=== PATIENT | male | born 1945 | race Caucasian/White ===

== ENCOUNTER 2019-10-28 07:34 | Emergency (ER) | payer MEDICARE ==
[2019-10-28 07:42] VITALS: RESP 18; TEMP 98.2
--- NOTE | 2019-10-28 08:17 | ED ---
General Adult HPI - General Chief complaint: Neuro Symptoms/Deficit Stated complaint: right arm numbness Time Seen by Provider: 10/28/19 07:35 Source: patient, RN notes reviewed, old records reviewed Mode of arrival: wheelchair Limitations: no limitations - History of Present Illness Initial comments: This is a 74-year-old male who presents to the emergency department stating that he woke up yesterday with right arm heaviness but no actual numbness or weakness. Patient states occasionally feels tingly like when it's about to go to sleep but never loses sensation. Patient states also when he raises his arm up he gets a sharp pain in his arm and a little more that tingling sensation like it's going to sleep but again never loses function or sensation. Patient denies any neck pain. Patient denies any increase in heaviness or weakness with movement of the neck per patient denies headache. Patient denies chest pain difficulty breathing shortest breath per patient denies any back pain. Patient denies any abdominal pain patient denies any recent fever chills or cough. - Related Data Home Medications Medication Instructions Recorded Confirmed No Known Home Medications 02/21/15 02/21/15 Allergies Allergy/AdvReac Type Severity Reaction Status Date / Time No Known Allergies Allergy Verified 10/28/19 07:38 Review of Systems ROS Statement: Those systems with pertinent positive or pertinent negative responses have been documented in the HPI. ROS Other: All systems not noted in ROS Statement are negative. Past Medical History Past Medical History: Prostate Disorder History of Any Multi-Drug Resistant Organisms: None Reported Past Surgical History: Prostate Surgery Past Psychological History: No Psychological Hx Reported Smoking Status: Never smoker Past Alcohol Use History: Occasional Past Drug Use History: None Reported General Exam - General Exam Comments Initial Comments: GENERAL: Patient is well-developed and well-nourished. Patient is nontoxic and well- hydrated and is in no acute distress. ENT: Neck is soft and supple. No significant lymphadenopathy is noted. Oropharynx is clear. Moist mucous membranes. Neck has full range of motion without eliciting any pain. EYES: The sclera were anicteric and conjunctiva were pink and moist. Extraocular movements were intact and pupils were equal round and reactive to light. Eyelids were unremarkable. PULMONARY: Unlabored respirations. Good breath sounds bilaterally. No audible rales rhonchi or wheezing was noted. CARDIOVASCULAR: Patient is a regular rate and is bradycardic at about 50 beats a minute ABDOMEN: Soft and nontender with normal bowel sounds. SKIN: Skin is clear with no lesions or rashes and otherwise unremarkable. NEUROLOGIC: Patient is alert and oriented x3. Cranial nerves II through XII are grossly intact. Motor and sensory are also intact. Normal speech, volume and content. Symmetrical smile. NIH is 0. Finger nose testing is normal bilaterally MUSCULOSKELETAL: Normal extremities with adequate strength and full range of motion. No lower extremity swelling or edema. No calf tenderness. Lifting patient's arm anteriorly up of his above his above the horizontal caused him some sharp pain in the upper arm which she states was the patient he was feeling earlier. LYMPHATICS: No significant lymphadenopathy is noted PSYCHIATRIC: Normal psychiatric evaluation. Limitations: no limitations Course Vital Signs 10/28/19 10/28/19 10/28/19 07:39 08:09 08:30 Temperature 98.2 F Pulse Rate 56 L 53 L 52 L Respiratory 18 18 18 Rate Blood Pressure 111/64 112/72 118/89 O2 Sat by Pulse 99 99 99 Oximetry Medical Decision Making - Medical Decision Making Chest x-ray is normal. Computed tomography scan is normal. EKG shows sinus bradycardia at 40 bpm OK interval is 254 QRS 92 QT interval 426 QTC is 380. Patient's EKG shows no ST segment elevation or depression. - Lab Data Result diagrams: 10/28/19 08:12 10/28/19 08:12 Lab Results 10/28/19 10/28/19 10/28/19 Range/Units 08:12 08:12 08:12 WBC 5.3 (3.8-10.6) k/uL RBC 4.43 (4.30-5.90) m/uL Hgb 13.6 (13.0-17.5) gm/dL Hct 41.3 (39.0-53.0) % MCV 93.3 (80.0-100.0) fL MCH 30.8 (25.0-35.0) pg MCHC 33.0 (31.0-37.0) g/dL RDW 12.9 (11.5-15.5) % Plt Count 149 L (150-450) k/uL Neutrophils % 68 % Lymphocytes % 16 % Monocytes % 9 % Eosinophils % 4 % Basophils % 0 % Neutrophils # 3.6 (1.3-7.7) k/uL Lymphocytes # 0.9 L (1.0-4.8) k/uL Monocytes # 0.5 (0-1.0) k/uL Eosinophils # 0.2 (0-0.7) k/uL Basophils # 0.0 (0-0.2) k/uL PT 10.2 (9.0-12.0) sec INR 1.0 (<1.2) APTT 22.9 (22.0-30.0) sec Sodium 139 (137-145) mmol/L Potassium 4.3 (3.5-5.1) mmol/L Chloride 107 (98-107) mmol/L Carbon Dioxide 27 (22-30) mmol/L Anion Gap 5 mmol/L BUN 13 (9-20) mg/dL Creatinine 0.82 (0.66-1.25) mg/dL Est GFR (CKD-EPI)AfAm >90 (>60 ml/min/1.73 sqM) Est GFR (CKD-EPI)NonAf 87 (>60 ml/min/1.73 sqM) Glucose 109 H (74-99) mg/dL Calcium 9.1 (8.4-10.2) mg/dL Total Bilirubin 0.7 (0.2-1.3) mg/dL AST 22 (17-59) U/L ALT 14 (4-49) U/L Alkaline Phosphatase 60 (38-126) U/L Troponin I (0.000-0.034) ng/mL Total Protein 6.4 (6.3-8.2) g/dL Albumin 3.9 (3.5-5.0) g/dL 10/28/19 Range/Units 08:12 WBC (3.8-10.6) k/uL RBC (4.30-5.90) m/uL Hgb (13.0-17.5) gm/dL Hct (39.0-53.0) % MCV (80.0-100.0) fL MCH (25.0-35.0) pg MCHC (31.0-37.0) g/dL RDW (11.5-15.5) % Plt Count (150-450) k/uL Neutrophils % % Lymphocytes % % Monocytes % % Eosinophils % % Basophils % % Neutrophils # (1.3-7.7) k/uL Lymphocytes # (1.0-4.8) k/uL Monocytes # (0-1.0) k/uL Eosinophils # (0-0.7) k/uL Basophils # (0-0.2) k/uL PT (9.0-12.0) sec INR (<1.2) APTT (22.0-30.0) sec Sodium (137-145) mmol/L Potassium (3.5-5.1) mmol/L Chloride (98-107) mmol/L Carbon Dioxide (22-30) mmol/L Anion Gap mmol/L BUN (9-20) mg/dL Creatinine (0.66-1.25) mg/dL Est GFR (CKD-EPI)AfAm (>60 ml/min/1.73 sqM) Est GFR (CKD-EPI)NonAf (>60 ml/min/1.73 sqM) Glucose (74-99) mg/dL Calcium (8.4-10.2) mg/dL Total Bilirubin (0.2-1.3) mg/dL AST (17-59) U/L ALT (4-49) U/L Alkaline Phosphatase (38-126) U/L Troponin I <0.012 (0.000-0.034) ng/mL Total Protein (6.3-8.2) g/dL Albumin (3.5-5.0) g/dL Disposition Clinical Impression: Paresthesia Disposition: HOME SELF-CARE Instructions (If sedation given, give patient instructions): Meralgia Paresthetica (ED), Paresthesia (ED), Stroke (DC) Is patient prescribed a controlled substance at d/c from ED?: No Referrals: Milena Abad MD [Primary Care Provider] - 1-2 days Time of Disposition: 09:05
[2019-10-28 08:21] LABS: Basophils % (A) 0 %; Eosinophils # (A) 0.2 k/uL (0-0.7); Eosinophils % (A) 4 %; HCT 41.3 % (39.0-53.0); HGB 13.6 gm/dL (13.0-17.5); Lymphocytes # (A) 0.9 k/uL (1.0-4.8); Lymphocytes % (A) 16 %; MCH 30.8 pg (25.0-35.0); MCV 93.3 fL (80.0-100.0); Mean Platelet Volume 8.6; Monocytes # (A) 0.5 k/uL (0-1.0); Monocytes % (A) 9 %; Neutrophils # (A) 3.6 k/uL (1.3-7.7); Neutrophils % (A) 68 %; Platelet Count 149 k/uL (150-450); RBC 4.43 m/uL (4.30-5.90); RDW 12.9 % (11.5-15.5); WBC 5.3 k/uL (3.8-10.6)
[2019-10-28 08:29] LABS: Partial Thromboplastin Time 22.9 sec (22.0-30.0); Prothrombin Time 10.2 sec (9.0-12.0)
[2019-10-28 08:30] LABS: ALT 14 U/L (4-49); AST 22 U/L (17-59); African American GFR (CKD) >90 (>60 ml/min/1.73 sqM); Albumin 3.9 g/dL (3.5-5.0); Alkaline Phosphatase 60 U/L (38-126); Anion Gap 5 mmol/L; Blood Urea Nitrogen 13 mg/dL (9-20); Calcium 9.1 mg/dL (8.4-10.2); Carbon Dioxide 27 mmol/L (22-30); Chloride 107 mmol/L (98-107); Glucose 109 mg/dL (74-99); Non-African American GFR(CKD) 87 (>60 ml/min/1.73 sqM); Potassium 4.3 mmol/L (3.5-5.1); Sodium 139 mmol/L (137-145); Total Bilirubin 0.7 mg/dL (0.2-1.3); Total Protein 6.4 g/dL (6.3-8.2)
--- NOTE | 2019-10-28 08:46 | CT ---
EXAMINATION TYPE: CT brain wo con for TPA DATE OF EXAM: 10/28/2019 COMPARISON: None HISTORY: Rt upper ext weakness CT DLP: 1095.[address] of the brain was performed. The ventricles, basal cisterns and sulci overlying the cerebral convexities demonstrate mild enlargem ent. There is no evidence for intracranial hemorrhage or sulcal effacement. There is decreased attenuation about the periventricular white matter and deep white matter of both c erebral hemispheres, compatible with chronic small vessel ischemia. Differential diagnosis does inclu de demyelination. No mass effects are seen.No midline shift. Osseous calvarium is intact. If symptoms persist consider MRI. IMPRESSION: 1. Age related atrophic and chronic small vessel ischemic change without acute intracranial process s een at this time.
--- NOTE | 2019-10-28 08:52 | XR ---
EXAMINATION TYPE: XR chest 2V DATE OF EXAM: 10/28/2019 COMPARISON: NONE HISTORY: Shortness of breath TECHNIQUE: Frontal and lateral views of the chest are obtained. FINDINGS: Scattered senescent parenchymal changes noted. Hyperinflation compatible with COPD. No evidence for infiltrate. No evidence for atelectasis. Heart size is stable. Mediastinal structures are stable and grossly unremarkable. No evidence for hilar prominence. Degenerative changes dorsal spine. IMPRESSION: 1. No evidence for acute pulmonary disease.
[2019-10-28 09:03] VITALS: PULSE 52
[2019-10-28] MEDS ORDERED: KETOROLAC 30 MG/ML 1 ML VIAL IVP STA (09:09)
[2019-10-28 09:37] VITALS: BP 117/75
== END 2019-10-28 09:36 | disposition home or self-care (01) ==
LOC: EC 07:34
DX: R20.2 Paresthesia of skin (principal); R20.0 Anesthesia of skin
CPT/HCPCS: 36415; 93005; 80053; 84484; 85025; 85610; 85730; 71046; 70450; 96374; 99285; J1885

== ENCOUNTER 2020-09-19 11:33 | Emergency (ER) | payer MEDICARE ==
[2020-09-19 11:57] VITALS: TEMP 97.8
[2020-09-19] MEDS ORDERED: SODIUM CHLORIDE 0.9% 1,000 ML IV STA (12:38)
[2020-09-19] MEDS ORDERED: ONDANSETRON 4 MG/2 ML VIAL IVP STA (12:38)
[2020-09-19 13:02] LABS: Appearance,Urine Clear (Clear); Basophils % (A) 1 %; Bilirubin,Urine Negative (Negative); Blood,Urine Negative (Negative); Color,Urine Yellow; Eosinophils # (A) 0.2 k/uL (0-0.7); Eosinophils % (A) 4 %; Glucose,Urine (UA) Negative (Negative); HCT 42.7 % (39.0-53.0); Ketones,Urine Trace (Negative); Leukocyte Esterase,Urine Negative (Negative); Lymphocytes # (A) 0.9 k/uL (1.0-4.8); Lymphocytes % (A) 21 %; MCH 30.9 pg (25.0-35.0); MCHC 32.8 g/dL (31.0-37.0); MCV 94.2 fL (80.0-100.0); Mean Platelet Volume 8.9; Monocytes # (A) 0.4 k/uL (0-1.0); Monocytes % (A) 8 %; Neutrophils # (A) 2.8 k/uL (1.3-7.7); Neutrophils % (A) 63 %; Nitrite,Urine Negative (Negative); Platelet Count 167 k/uL (150-450); Protein,Urine Negative (Negative); RBC 4.54 m/uL (4.30-5.90); RDW 13.7 % (11.5-15.5); Urobilinogen,Urine <2.0 mg/dL (<2.0); WBC 4.4 k/uL (3.8-10.6)
[2020-09-19 13:23] LABS: ALT 51 U/L (4-49); AST 62 U/L (17-59); African American GFR (CKD) >90 (>60 ml/min/1.73 sqM); Albumin 3.8 g/dL (3.5-5.0); Alkaline Phosphatase 56 U/L (38-126); Amylase 118 U/L (30-110); Anion Gap 6 mmol/L; Blood Urea Nitrogen 15 mg/dL (9-20); Calcium 9.4 mg/dL (8.4-10.2); Carbon Dioxide 27 mmol/L (22-30); Chloride 105 mmol/L (98-107); Glucose 93 mg/dL (74-99); Lipase 286 U/L (23-300); Non-African American GFR(CKD) 80 (>60 ml/min/1.73 sqM); Potassium 4.4 mmol/L (3.5-5.1); Sodium 138 mmol/L (137-145); Total Bilirubin 0.5 mg/dL (0.2-1.3); Total Protein 6.3 g/dL (6.3-8.2)
--- NOTE | 2020-09-19 14:04 | ED ---
Abdominal Pain HPI - General Chief Complaint: Abdominal Pain Stated Complaint: abd pain Time Seen by Provider: 09/19/20 12:12 Source: patient Mode of arrival: ambulatory Limitations: no limitations - History of Present Illness Initial Comments: Patient is a 75-year-old male with history of prostate disorder, presenting to the emergency Department with complaints of 7 days of left lower quadrant abdominal pain along with some nausea and diarrhea. He states he does have a history of diverticulitis. He went to his doctor's office 5 days ago, was star ting on Cipro and Flagyl. He states for couple days he felt improvement for over the last few days he continues to have some discomfort in the left lower quadrant, has approximately 2-3 episodes of diarrhea in the morning and is still not eating very much. He does have some mild nausea present, no vomiting. He denies any fevers or chills. He has been taking the antibiotics as prescribed. No history of C. diff. He denies any abdominal surgical history. He has been urinating without difficulty. No chest pain or shortness of breath. He has no further complaints at this time. Vital signs are stable upon arrival. - Related Data Home Medications Medication Instructions Recorded Confirmed Atorvastatin Calcium [Lipitor] 10 mg PO HS 09/19/20 09/19/20 Ciprofloxacin HCl [Cipro] 500 mg PO BID 09/19/20 09/19/20 Ipratropium [place] 0.06%Nasal 1 - 2 spray EA NOSTRIL BID 09/19/20 09/19/20 [Atrovent Nasal 0.06%] Levothyroxine Sodium [Synthroid] 25 mcg PO DAILY 09/19/20 09/19/20 metroNIDAZOLE [Flagyl] 500 mg PO TID 09/19/20 09/19/20 Allergies Allergy/AdvReac Type Severity Reaction Status Date / Time almond Allergy Unknown Verified 09/19/20 13:20 Review of Systems ROS Statement: Those systems with pertinent positive or pertinent negative responses have been documented in the HPI. ROS Other: All systems not noted in ROS Statement are negative. Past Medical History Past Medical History: Prostate Disorder Additional Past Medical History / Comment(s): diverticulitis History of Any Multi-Drug Resistant Organisms: None Reported Past Surgical History: Prostate Surgery Past Psychological History: No Psychological Hx Reported Smoking Status: Never smoker Past Alcohol Use History: Occasional Past Drug Use History: None Reported General Exam - General Exam Comments Initial Comments: GENERAL: Patient is well-developed and well-nourished. Patient is nontoxic and in no acute distress. HEAD: Atraumatic, normocephalic. EYES: Pupils equal round and reactive to light, extraocular movements intact, sclera anicteric, conjunctiva are normal. Eyelids were unremarkable. ENT: TMs normal, nares patent, oropharynx clear without exudates. Moist mucous membranes. NECK: Normal range of motion, supple without lymphadenopathy or JVD. LUNGS: Unlabored respirations. Breath sounds clear to auscultation bilaterally and equal. No wheezes rales or rhonchi. HEART: Regular rate and rhythm without murmurs, rubs or gallops. ABDOMEN: Soft, tenderness of the left lower quadrant, normoactive bowel sounds. No guarding, no rebound. No masses appreciated. : Deferred MUSCULOSKELETAL: Normal extremities with adequate strength and normal range of motion, no pitting or edema. No clubbing or cyanosis. NEUROLOGICAL: Patient is alert and oriented x 3. Motor and sensory are also intact. Cranial nerves II through XII grossly intact. Symmetrical smile. Normal speech, normal gait. PSYCH: Normal mood, normal affect. SKIN: Warm, Dry, normal turgor, no rashes or lesions noted. Limitations: no limitations Course Vital Signs 09/19/20 09/19/20 11:53 15:00 Temperature 97.8 F Pulse Rate 64 52 L Respiratory 20 16 Rate Blood Pressure 116/77 108/68 O2 Sat by Pulse 98 98 Oximetry Medical Decision Making - Medical Decision Making Patient is a 75-year-old male here with left lower quadrant pain for the past 7 days, he is currently on day 5 of Cipro and Flagyl prescribed by his primary care physician. He continues to have left lower quadrant discomfort, some mild diarrhea and nausea. His vitals are stable upon arrival. Labs show a normal white count, liver enzymes are very slightly elevated, lipase is normal at 286, urine shows trace ketones, no evidence of infection. CT of the abdomen shows sigmoid diverticulosis, no signs of acute appendicitis. There was a vague hypodensity in the posterior aspect of the pancreatic tail, this could be partial volume with some superimposed fat, they recommended 3 month follow-up to exclude an early pancreatic mass. I discussed these findings with the patient. Patient was given some fluids and Zofran and has been resting comfortably. He is not having any pain right now. I discussed that there is no signs of an acute diverticulitis. I did recommend finishing up the antibiotics he was given, I will give him some Zofran to go home with. Follow up with his primary care doctor. Return parameters were discussed with him and he verbalized understanding. Case discussed with Dr. Mendenhall. - Lab Data Result diagrams: 09/19/20 12:44 09/19/20 12:44 Lab Results 09/19/20 09/19/20 09/19/20 Range/Units 12:44 12:44 12:44 WBC 4.4 (3.8-10.6) k/uL RBC 4.54 (4.30-5.90) m/uL Hgb 14.0 (13.0-17.5) gm/dL Hct 42.7 (39.0-53.0) % MCV 94.2 (80.0-100.0) fL MCH 30.9 (25.0-35.0) pg MCHC 32.8 (31.0-37.0) g/dL RDW 13.7 (11.5-15.5) % Plt Count 167 (150-450) k/uL MPV 8.9 Neutrophils % 63 % Lymphocytes % 21 % Monocytes % 8 % Eosinophils % 4 % Basophils % 1 % Neutrophils # 2.8 (1.3-7.7) k/uL Lymphocytes # 0.9 L (1.0-4.8) k/uL Monocytes # 0.4 (0-1.0) k/uL Eosinophils # 0.2 (0-0.7) k/uL Basophils # 0.0 (0-0.2) k/uL Sodium 138 (137-145) mmol/L Potassium 4.4 (3.5-5.1) mmol/L Chloride 105 (98-107) mmol/L Carbon Dioxide 27 (22-30) mmol/L Anion Gap 6 mmol/L BUN 15 (9-20) mg/dL Creatinine 0.93 (0.66-1.25) mg/dL Est GFR (CKD-EPI)AfAm >90 (>60 ml/min/1.73 sqM) Est GFR (CKD-EPI)NonAf 80 (>60 ml/min/1.73 sqM) Glucose 93 (74-99) mg/dL Plasma Lactic Acid Joaquim (0.7-2.0) mmol/L Calcium 9.4 (8.4-10.2) mg/dL Total Bilirubin 0.5 (0.2-1.3) mg/dL AST 62 H (17-59) U/L ALT 51 H (4-49) U/L Alkaline Phosphatase 56 (38-126) U/L Total Protein 6.3 (6.3-8.2) g/dL Albumin 3.8 (3.5-5.0) g/dL Amylase 118 H (30-110) U/L Lipase 286 (23-300) U/L Urine Color Yellow Urine Appearance Clear (Clear) Urine pH 5.0 (5.0-8.0) Ur Specific [place] 1.010 (1.001-1.035) Urine Protein Negative (Negative) Urine Glucose (UA) Negative (Negative) Urine Ketones Trace H (Negative) Urine Blood Negative (Negative) Urine Nitrite Negative (Negative) Urine Bilirubin Negative (Negative) Urine Urobilinogen <2.0 (<2.0) mg/dL Ur Leukocyte Esterase Negative (Negative) 09/19/20 Range/Units 12:44 WBC (3.8-10.6) k/uL RBC (4.30-5.90) m/uL Hgb (13.0-17.5) gm/dL Hct (39.0-53.0) % MCV (80.0-100.0) fL MCH (25.0-35.0) pg MCHC (31.0-37.0) g/dL RDW (11.5-15.5) % Plt Count (150-450) k/uL MPV Neutrophils % % Lymphocytes % % Monocytes % % Eosinophils % % Basophils % % Neutrophils # (1.3-7.7) k/uL Lymphocytes # (1.0-4.8) k/uL Monocytes # (0-1.0) k/uL Eosinophils # (0-0.7) k/uL Basophils # (0-0.2) k/uL Sodium (137-145) mmol/L Potassium (3.5-5.1) mmol/L Chloride (98-107) mmol/L Carbon Dioxide (22-30) mmol/L Anion Gap mmol/L BUN (9-20) mg/dL Creatinine (0.66-1.25) mg/dL Est GFR (CKD-EPI)AfAm (>60 ml/min/1.73 sqM) Est GFR (CKD-EPI)NonAf (>60 ml/min/1.73 sqM) Glucose (74-99) mg/dL Plasma Lactic Acid Joaquim 0.7 (0.7-2.0) mmol/L Calcium (8.4-10.2) mg/dL Total Bilirubin (0.2-1.3) mg/dL AST (17-59) U/L ALT (4-49) U/L Alkaline Phosphatase (38-126) U/L Total Protein (6.3-8.2) g/dL Albumin (3.5-5.0) g/dL Amylase (30-110) U/L Lipase (23-300) U/L Urine Color Urine Appearance (Clear) Urine pH (5.0-8.0) Ur Specific [place] (1.001-1.035) Urine Protein (Negative) Urine Glucose (UA) (Negative) Urine Ketones (Negative) Urine Blood (Negative) Urine Nitrite (Negative) Urine Bilirubin (Negative) Urine Urobilinogen (<2.0) mg/dL Ur Leukocyte Esterase (Negative) Disposition Clinical Impression: Abdominal pain, Nausea & vomiting Disposition: HOME SELF-CARE Condition: Stable Instructions (If sedation given, give patient instructions): Abdominal Pain (ED) Additional Instructions: Please return to the Emergency Department if symptoms worsen or any other concerns. Continue with your already prescribed antibiotics, finished entire course. May use Zofran for any nausea or vomiting. Follow-up with your primary care physician. Is patient prescribed a controlled substance at d/c from ED?: No Referrals: Milena Abad MD [Primary Care Provider] - 1-2 days Time of Disposition: 14:49
--- NOTE | 2020-09-19 14:05 | CT ---
EXAMINATION TYPE: CT abdomen pelvis w con DATE OF EXAM: 09/19/2020 COMPARISON: NONE HISTORY: 75-year-old male LLQ abdominal pain TECHNIQUE: Contiguous axial scanning of the abdomen and pelvis following administration of 100 ml Iso tomas 300 IV contrast. Delayed images through the kidneys and coronal/sagittal reconstructions perform ed. CT DLP: 970.2 mGycm Automated exposure control for dose reduction was used. FINDINGS: Heart normal size without pericardial effusion. Mild dependent atelectasis visualized lung bases with out pleural effusion. No focal liver lesion. Portal venous system is patent. No abnormal gallbladder distention. Bile duct mildly dilated at 7 mm, acceptable given patient's age. Adrenal glands, kidneys, and spleen with hilar splenule show no gross abnormality. Vague 9 mm hypodensity posterior aspect of the pancreatic tail may be partial volume averaging artifa ct. Three-month follow-up recommended to exclude a small early pancreatic mass. Fold thickening of the gastric body and fundus. No dilated small bowel, free fluid, or free air. No mesenteric or retroperitoneal lymphadenopathy. Mo ttled ingested material within the distal small bowel suggesting fiber food bolus. Mild to moderate stool in the right side of the colon. Sigmoid diverticulosis. No pericolonic inflamm atory change. Small fatty umbilical hernia. Bladder urine distended. Multiple surgical clips in the pelvis and along the obturator chains. Prosta te gland is surgically absent. No abnormal fluid collection in the pelvis or pelvic lymphadenopathy. Bones: Mild degenerative change of the hips. Left L5 hemisacralization with a degenerative assimilati on joint. There appears to be L4 and L5 left-sided laminotomy defects. Moderate to advanced degenerative disc d isease mid to lower lumbar spine. Hypertrophic facet arthropathy. IMPRESSION: 1. SIGMOID DIVERTICULOSIS. NO OVERT CT FINDINGS OF ACUTE APPENDICITIS. 2. VAGUE 9 MM HYPODENSITY IN THE POSTERIOR ASPECT OF THE PANCREATIC TAIL MAY BE PARTIAL VOLUME AVERAG ING WITH SOME INTERPOSED FAT. RECOMMEND THREE-MONTH FOLLOW-UP CT TO EXCLUDE A SMALL EARLY PANCREATIC MASS. 3. FOLD THICKENING OF THE GASTRIC FUNDUS AND BODY. CORRELATION TO EXCLUDE GASTRITIS.
[2020-09-19] MEDS ORDERED: ONDANSETRON 4 MG ODT STARTER PACK 2 TAB BTL PO STA (14:48)
[2020-09-19 15:01] VITALS: BP 108/68; PULSE 52; RESP 16
== END 2020-09-19 15:05 | disposition home or self-care (01) ==
LOC: EC 11:33
DX: R10.32 Left lower quadrant pain (principal); R19.7 Diarrhea, unspecified; R11.2 Nausea with vomiting, unspecified
CPT/HCPCS: 99284; 96374; 96361; 36415; 80053; 82150; 83605; 83690; 85025; 81003; 74177; J2405; S0119; Q9967

== ENCOUNTER → 2021-01-23 | Outpatient (CLI) | payer MEDICARE ==
--- NOTE | 2021-01-23 14:34 | CT ---
EXAMINATION TYPE: CT abdomen w con DATE OF EXAM: 01/23/2021 COMPARISON: CT abdomen and pelvis September 19, 2020 HISTORY: Mass of pancreas per order. CT DLP: 237 mGycm, Automated Exposure Control for Dose Reduction was Utilized. CONTRAST: CT scan of the abdomen is performed with oral water and with IV Contrast, patient injected with 100 m L of Isovue 370. FINDINGS: LUNG BASES: Coronary artery calcification in the RCA distribution incidentally noted. LIVER/GB: No significant abnormality is appreciated. PANCREAS: Persistent vague 7 mm hypodense focus in the posterior aspect distal pancreatic body axial image 64 series 3 is less prominent on delayed phased images. Remainder of pancreas is unremarkable. No significant change from prior. SPLEEN: No significant abnormality is seen. ADRENALS: No significant abnormality is seen. KIDNEYS: No significant abnormality is seen. BOWEL: No significant abnormality is seen. LYMPH NODES: No greater than 1cm abdominal lymph nodes are appreciated. OSSEOUS STRUCTURES: Facet arthropathy and disc space narrowing lower lumbar levels. OTHER: No significant additional abnormality is seen. IMPRESSION: Stable 7 mm hypoechoic lesion posterior distal pancreatic body is nonspecific. Favored Be nign in etiology. Consider pancreatic MRI/MRCP to further evaluate.
== END | disposition home or self-care (01) ==
LOC: RADCTMAIN 12:57
PROVIDERS: ATTEND Family Medicine
DX: K86.89 Other specified diseases of pancreas (principal)
CPT/HCPCS: 82565; 84520; 74160; 36415; Q9967

== ENCOUNTER → 2021-02-04 | Outpatient (CLI) | payer MEDICARE ==
--- NOTE | 2021-02-05 09:21 | MR ---
EXAMINATION TYPE: MR abdomen wo/w con DATE OF EXAM: 02/04/2021 COMPARISON: Correlation CT 01/23/2021 and 09/19/2020 HISTORY: 75-year-old male history of skin and prostate cancer. 7mm hypodense lesion posterior distal pancreatic body. Technologist notes: History of skin and prostate cancer Technique: Multiplanar, multisequence images of the abdomen were obtained before and after administra tion of 8 mL intravenous Gadavist gadolinium contrast. FINDINGS: The heart is upper limits of normal in size without pericardial effusion. No significant loss of signal of the liver on opposed phase T1-weighted sequences to suggest fatty in filtration. A small T2 hyperintensity at the mid hepatic dome measuring 1.0 cm. This fills in on the delayed postcontrast images with signal intensity following the blood pole suggesting a small hemangi idalia. No other focal liver lesion. No biliary ductal dilatation. Portal venous system is patent. Gallbladder, adrenal glands, right kidney, and spleen with hilar splenule within normal limits. Small parapelvic cysts in the left kidney measuring up to 1.0 cm. The questioned 9 mm area posterior pancreatic tail corresponds to an area of diminished T1 signal int ensity. There is no associated restricted diffusion. Microcystic appearance on T2-weighted sequence. No nodular or masslike enhancement is seen here. No upper abdominal ascites, lymphadenopathy, or gross bowel abnormality is seen. IMPRESSION: 1. 9 mm microcystic lesion posterior pancreatic tail corresponds to the hypodensity on CT. One year f ollow-up MRI recommended. Differential considerations include sequela of prior pancreatitis, a small serous cystadenoma, and a small IPMN. 2. Incidental small 1 cm hemangioma at the hepatic dome.
== END | disposition home or self-care (01) ==
LOC: RADMRIMAIN 12:52
PROVIDERS: ATTEND Family Medicine
DX: K86.89 Other specified diseases of pancreas (principal)
CPT/HCPCS: 74183; A9585

== ENCOUNTER 2021-11-23 10:17 | Observation (INO) | payer MEDICARE ==
[2021-11-23] MEDS ORDERED: NITROGLYCERIN OINT 1 INCH/GM PACKET TOPICAL STA (10:48)
[2021-11-23] MEDS ORDERED: ASPIRIN 81 MG PO STA (10:48)
--- NOTE | 2021-11-23 10:50 | ED ---
General Adult HPI - General Chief complaint: Chest Pain Stated complaint: tightness in Chest Time Seen by Provider: 11/23/21 10:33 Source: patient, family, RN notes reviewed Mode of arrival: wheelchair Limitations: no limitations - History of Present Illness Initial comments: Patient is a pleasant 76-year-old male presenting to the emergency department with concerns for chest tightness. Onset of symptoms was this morning while getting ready. Discomfort has improved and now near resolved. Patient has had several episodes over the past month. No associated dyspnea, nausea, or diaphoresis. No history of previous cardiac problems. No leg pain or leg swelling. - Related Data Home Medications Medication Instructions Recorded Confirmed Atorvastatin Calcium [Lipitor] 10 mg PO HS 09/19/20 09/19/20 Ciprofloxacin HCl [Cipro] 500 mg PO BID 09/19/20 09/19/20 Ipratropium [place] 0.06%Nasal 1 - 2 spray EA NOSTRIL BID 09/19/20 09/19/20 [Atrovent Nasal 0.06%] Levothyroxine Sodium [Synthroid] 25 mcg PO DAILY 09/19/20 09/19/20 metroNIDAZOLE [Flagyl] 500 mg PO TID 09/19/20 09/19/20 Allergies Allergy/AdvReac Type Severity Reaction Status Date / Time almond Allergy Unknown Verified 11/23/21 10:29 Review of Systems ROS Statement: Those systems with pertinent positive or pertinent negative responses have been documented in the HPI. ROS Other: All systems not noted in ROS Statement are negative. Constitutional: Denies: fever Eyes: Denies: eye pain ENT: Denies: ear pain Respiratory: Denies: cough Cardiovascular: Reports: as per HPI, chest pain Endocrine: Denies: fatigue Gastrointestinal: Denies: abdominal pain Genitourinary: Denies: dysuria Musculoskeletal: Denies: back pain Skin: Denies: rash Neurological: Denies: weakness Past Medical History Past Medical History: Prostate Disorder Additional Past Medical History / Comment(s): diverticulitis History of Any Multi-Drug Resistant Organisms: MRSA Date of last positivie culture/infection: 02/17/21 MDRO Source:: MRSA SCALP Past Surgical History: Prostate Surgery Past Psychological History: No Psychological Hx Reported Smoking Status: Never smoker Past Alcohol Use History: Occasional Past Drug Use History: None Reported General Exam Limitations: no limitations General appearance: alert, in no apparent distress Head exam: Present: normocephalic Eye exam: Present: normal appearance Neck exam: Present: normal inspection Respiratory exam: Present: normal lung sounds bilaterally. Absent: chest wall tenderness Cardiovascular Exam: Present: regular rate, normal rhythm Expanded Peripheral pulses: 2+: Radial (R), Radial (L), Posterior Tibialis (R), Posterior Tibialis (L) GI/Abdominal exam: Present: soft. Absent: tenderness Extremities exam: Present: normal inspection. Absent: pedal edema, calf tenderness Neurological exam: Present: alert Psychiatric exam: Present: normal affect, normal mood Skin exam: Present: normal color Course Vital Signs 11/23/21 11/23/21 11/23/21 10:19 10:40 10:49 Temperature 97.6 F Pulse Rate 58 L 52 L Pulse Rate [ 67 Candy Supervisor ] Respiratory 18 16 Rate Blood Pressure 133/78 124/74 O2 Sat by Pulse 98 98 Oximetry 11/23/21 11:26 Temperature Pulse Rate 50 L Pulse Rate [ Candy Supervisor ] Respiratory 20 Rate Blood Pressure 120/74 O2 Sat by Pulse 98 Oximetry - Reevaluation(s) Reevaluation #1: 11/23/21 11:46 Repeat EKG shows a bradycardia with a rate of 53. For screening AV block ID 258. QRS 161. QT 450. QTC 432. Left axis. Right bundle branch block. No acute ST change. EKG Findings - EKG Comments: EKG Findings:: Sinus tachycardia. 2. For screening AV block ID 256. QRS 164. QT 436. QTc 4:15. Left axis. Right bundle branch block. No acute ST change. Medical Decision Making - Medical Decision Making Patient reevaluated and resting comfortably in bed. Patient updated on results and plan. Case was discussed with Dr. Ghosh, who will admit covering hospital observation call. - Lab Data Result diagrams: 11/23/21 10:51 11/23/21 10:51 Lab Results 11/23/21 11/23/21 11/23/21 Range/Units 10:51 10:51 10:51 WBC 5.1 (3.8-10.6) k/uL RBC 4.53 (4.30-5.90) m/uL Hgb 14.2 (13.0-17.5) gm/dL Hct 43.8 (39.0-53.0) % MCV 96.6 (80.0-100.0) fL MCH 31.4 (25.0-35.0) pg MCHC 32.5 (31.0-37.0) g/dL RDW 13.1 (11.5-15.5) % Plt Count 161 (150-450) k/uL MPV 8.4 Neutrophils % 66 % Lymphocytes % 18 % Monocytes % 8 % Eosinophils % 5 % Basophils % 1 % Neutrophils # 3.4 (1.3-7.7) k/uL Lymphocytes # 0.9 L (1.0-4.8) k/uL Monocytes # 0.4 (0-1.0) k/uL Eosinophils # 0.2 (0-0.7) k/uL Basophils # 0.0 (0-0.2) k/uL PT 10.5 (9.0-12.0) sec INR 1.0 (<1.2) APTT 22.5 (22.0-30.0) sec Sodium 142 (137-145) mmol/L Potassium 4.8 (3.5-5.1) mmol/L Chloride 104 (98-107) mmol/L Carbon Dioxide 29 (22-30) mmol/L Anion Gap 9 mmol/L BUN 17 (9-20) mg/dL Creatinine 1.02 (0.66-1.25) mg/dL Est GFR (CKD-EPI)AfAm 82 (>60 ml/min/1.73 sqM) Est GFR (CKD-EPI)NonAf 71 (>60 ml/min/1.73 sqM) Glucose 93 (74-99) mg/dL Calcium 9.2 (8.4-10.2) mg/dL Magnesium 2.0 (1.6-2.3) mg/dL Total Bilirubin 0.2 (0.2-1.3) mg/dL AST 26 (17-59) U/L ALT 19 (4-49) U/L Alkaline Phosphatase 80 (38-126) U/L Troponin I (0.000-0.034) ng/mL Total Protein 6.8 (6.3-8.2) g/dL Albumin 4.1 (3.5-5.0) g/dL 11/23/21 Range/Units 10:51 WBC (3.8-10.6) k/uL RBC (4.30-5.90) m/uL Hgb (13.0-17.5) gm/dL Hct (39.0-53.0) % MCV (80.0-100.0) fL MCH (25.0-35.0) pg MCHC (31.0-37.0) g/dL RDW (11.5-15.5) % Plt Count (150-450) k/uL MPV Neutrophils % % Lymphocytes % % Monocytes % % Eosinophils % % Basophils % % Neutrophils # (1.3-7.7) k/uL Lymphocytes # (1.0-4.8) k/uL Monocytes # (0-1.0) k/uL Eosinophils # (0-0.7) k/uL Basophils # (0-0.2) k/uL PT (9.0-12.0) sec INR (<1.2) APTT (22.0-30.0) sec Sodium (137-145) mmol/L Potassium (3.5-5.1) mmol/L Chloride (98-107) mmol/L Carbon Dioxide (22-30) mmol/L Anion Gap mmol/L BUN (9-20) mg/dL Creatinine (0.66-1.25) mg/dL Est GFR (CKD-EPI)AfAm (>60 ml/min/1.73 sqM) Est GFR (CKD-EPI)NonAf (>60 ml/min/1.73 sqM) Glucose (74-99) mg/dL Calcium (8.4-10.2) mg/dL Magnesium (1.6-2.3) mg/dL Total Bilirubin (0.2-1.3) mg/dL AST (17-59) U/L ALT (4-49) U/L Alkaline Phosphatase (38-126) U/L Troponin I <0.012 (0.000-0.034) ng/mL Total Protein (6.3-8.2) g/dL Albumin (3.5-5.0) g/dL - Radiology Data Radiology results: image reviewed (Chest x-ray shows no acute process) Disposition Clinical Impression: Chest pain Disposition: ADMITTED IP TO THIS [facility] Is patient prescribed a controlled substance at d/c from ED?: No Referrals: Milena Abad MD [Primary Care Provider] - 1-2 days Time of Disposition: 13:37
[2021-11-23 11:03] LABS: Basophils % (A) 1 %; Eosinophils # (A) 0.2 k/uL (0-0.7); Eosinophils % (A) 5 %; HCT 43.8 % (39.0-53.0); HGB 14.2 gm/dL (13.0-17.5); Lymphocytes # (A) 0.9 k/uL (1.0-4.8); Lymphocytes % (A) 18 %; MCH 31.4 pg (25.0-35.0); MCHC 32.5 g/dL (31.0-37.0); MCV 96.6 fL (80.0-100.0); Mean Platelet Volume 8.4; Monocytes # (A) 0.4 k/uL (0-1.0); Monocytes % (A) 8 %; Neutrophils # (A) 3.4 k/uL (1.3-7.7); Neutrophils % (A) 66 %; Platelet Count 161 k/uL (150-450); RBC 4.53 m/uL (4.30-5.90); RDW 13.1 % (11.5-15.5); WBC 5.1 k/uL (3.8-10.6)
[2021-11-23 11:19] LABS: Partial Thromboplastin Time 22.5 sec (22.0-30.0); Prothrombin Time 10.5 sec (9.0-12.0)
[2021-11-23 11:30] LABS: Albumin 4.1 g/dL (3.5-5.0); Calcium 9.2 mg/dL (8.4-10.2); Potassium 4.8 mmol/L (3.5-5.1); Total Bilirubin 0.2 mg/dL (0.2-1.3); Total Protein 6.8 g/dL (6.3-8.2)
--- NOTE | 2021-11-23 11:49 | XR ---
EXAMINATION TYPE: XR chest 2V DATE OF EXAM: 11/23/2021 11:05 AM COMPARISON: Chest radiographs from 10/28/2019 TECHNIQUE: XR chest 2V Frontal and lateral views of the chest. CLINICAL INDICATION:Male, 76 years old with history of Chest Pain; FINDINGS: Lungs/Pleura: There is no evidence of pleural effusion, focal consolidation, or pneumothorax. Pulmonary vascularity: Unremarkable. Heart/mediastinum: Cardiomediastinal silhouette is unremarkable. Musculoskeletal: No acute osseous pathology. IMPRESSION: No acute cardiopulmonary disease/process.
[2021-11-23] MEDS ORDERED: NITROGLYCERIN SL TABS 0.4 MG TAB SUBLINGUAL PRN (13:37)
[2021-11-23] MEDS ORDERED: IPRATROPIUM BROMIDE 0.06% NASAL SPRAY (15 ML) EA NOSTRIL PRN (14:48)
[2021-11-23] MEDS ORDERED: NALOXONE 0.4 MG/ML 1 ML VIAL IV PRN (14:49)
[2021-11-23] MEDS: ATORVASTATIN 10 MG TAB PO SCH (14:58)
--- NOTE | 2021-11-23 15:03 | P.HPIM ---
History of Present Illness H&P Date: 11/23/21 Subjective: This is a 76-year-old male with past medical history of hyperlipidemia, hypothyroidism, who presents to the hospital with complaints of chest pain. Patient states he has been having chest pain on and off for the past 3 weeks. Postoperative coronary when he was trying to put on a garden hose. The second time was a couple days ago when he was working outside his house and had another episode of chest pain. This morning he woke up and was trying to get ready to go discharge and he notices chest pain in the substernal region. This pain usually last for a few seconds and resolves. Does not radiate anywhere. He describes the pain as dull in nature. Denies any shortness of breath, palpitations, lightheadedness or dizziness. Denies any history of CAD, CHF or arrhythmias. Denies any nausea, vomiting or diaphoresis. States he his very active overall and has not had any symptoms with exertion. Denies any history of stress test or catheterization in the past. Review of systems: 10 out of 14. Systems performed negative except HPI Physical exam: General: [nontoxic], [no distress], [appears at stated age] Derm: [warm], [dry] Head: [atraumatic], [normocephalic], [symmetric] Eyes: [EOMI], [no lid lag], [anicteric sclera] Mouth: [no lip lesion], [mucus membranes moist] Cardiovascular: [S1S2 reg], [no murmur], regular rate and rhythm Lungs: [CTA bilateral], [no rhonchi, no rales] , [no accessory muscle use] Abdominal: [soft], [ nontender to palpation], [no guarding], [no appreciable organomegaly] Ext: [no gross muscle atrophy], [no edema], [no contractures] Psych: [Alert], [oriented], [appropriate affect] EKG performed 11/23/21: Rate 52. OH 256. QTC 415. Sinus bradycardia with first-degree AV block. Right bundle-branch block. Assessment: Atypical chest pain Sinus bradycardia with first-degree AV block Right bundle branch block Hyperlipidemia Hypothyroidism Plan: Continue aspirin 81 mg daily Continue atorvastatin 10 mg daily Continue this Synthroid 25 g daily Repeat EKG Trend troponins Nitroglycerin when necessary We'll order a stress echocardiogram for tomorrow. We'll order an echocardiogram Lovenox 40 mg daily for DVT prophylaxis Cardiology consultation Past Medical History Past Medical History: Prostate Disorder Additional Past Medical History / Comment(s): diverticulitis History of Any Multi-Drug Resistant Organisms: MRSA Date of last positivie culture/infection: 02/17/21 MDRO Source:: MRSA SCALP Past Surgical History: Prostate Surgery Past Psychological History: No Psychological Hx Reported Smoking Status: Never smoker Past Alcohol Use History: Occasional Past Drug Use History: None Reported Medications and Allergies Home Medications Medication Instructions Recorded Confirmed Type Atorvastatin Calcium [Lipitor] 10 mg PO DAILY 09/19/20 11/23/21 History Ipratropium [place] 0.06%Nasal 2 spr EA NOSTRIL BID PRN 09/19/20 11/23/21 History [Atrovent Nasal 0.06%] Levothyroxine Sodium [Synthroid] 25 mcg PO DAILY 09/19/20 11/23/21 History L.acidoph,Paracasei, B.lactis 1 cap PO DAILY 11/23/21 11/23/21 History [Probiotic] Multivitamins, Thera [Multivitamin 1 tab PO DAILY 11/23/21 11/23/21 History (formulary)] Allergies Allergy/AdvReac Type Severity Reaction Status Date / Time almond Allergy Anaphylaxis Verified 11/23/21 13:57 Physical Exam Vitals: Vital Signs Temp Pulse Pulse Resp BP Pulse Ox 11/23/21 11:26 50 L 20 120/74 98 11/23/21 10:49 52 L 16 124/74 98 11/23/21 10:40 67 11/23/21 10:19 97.6 F 58 L 18 133/78 98 Intake and Output 11/22/21 11/23/21 11/23/21 22:59 06:59 14:59 Other: Weight 81.647 kg Results CBC & Chem 7: 11/23/21 10:51 11/23/21 10:51 Labs: Abnormal Lab Results - Last 24 Hours (Table) 11/23/21 Range/Units 10:51 Lymphocytes # 0.9 L (1.0-4.8) k/uL
[2021-11-23] MEDS: ENOXAPARIN 40 MG/0.4 ML SYRINGE SQ SCH (15:48)
--- NOTE | 2021-11-23 15:57 | P.CRDCN ---
History of Present Illness Consult date: 11/23/21 History of present illness: History of Present Illness: The patient is a 76-year-old male with a history of hyperlipidemia who presents with symptoms of chest discomfort on and off for the last 6 weeks. The discomfort is not activity related, random time and short duration. He did not have any associated dyspnea, dizziness, palpitations or syncope. This morning he woke up getting ready to go to [employer], had some chest discomfort so he came into the emergency room. He is usually active physically, has no associated symptoms. He has no documented history of myocardial infarction, CAD or CHF. He has no history of diabetes, hypertension or smoking. The discomfort has no radiation and not associated with any other symptoms. In the emergency room his initial troponin was unremarkable and his EKG showed sinus mechanism with right bundle branch block of unknown duration. Medications: Atorvastatin 10 mg daily, levothyroxine, Atrovent Review of Systems: Respiratory: [No history of asthma, bronchitis or recent cough.] GI: [No nausea or vomiting . No history of peptic ulcer disease. No recent GI bleed.] : [No hematuria or dysuria.] Nervous System: [No stroke or seizure.] Physical Examination: 76-year-old male, alert oriented no apparent distress , blood pressure 115/50, heart rate in the 50s Head: [Normocephalic.] Eyes: [Sclerae nonicteric.] Neck: [Good carotid upstroke, no bruit, no jugular venous distention.] Lungs: [Clear to auscultation.] Heart: [Regular rate and rhythm, S1-S2, no S3, no rub. No murmur.] Abdomen: [Soft nontender, positive bowel sounds no organomegaly.] Extremities: [No edema, intact distal pulses. Labs: Hemoglobin 14.2, potassium 4.8, BUN 17, creatinine 1.02. Troponin less than 0.012 EKG: sinus mechanism with right bundle branch block, first-degree AV block Impression: 1. chest discomfort probably noncardiac 2. hyperlipidemia 3. hypothyroidism 4. right bundle branch block of unknown duration Plan: 1. continue telemetry 2. obtain an echocardiogram with Doppler 3. stress echocardiogram if no enzymatic changes or further chest pain 4. depending on the results of this testing further recommendations will be made 5. thank you for this consult we will follow with you Past Medical History Past Medical History: Prostate Disorder Additional Past Medical History / Comment(s): diverticulitis History of Any Multi-Drug Resistant Organisms: MRSA Date of last positivie culture/infection: 02/17/21 MDRO Source:: MRSA SCALP Past Surgical History: Prostate Surgery Past Anesthesia/Blood Transfusion Reactions: No Reported Reaction Past Psychological History: No Psychological Hx Reported Smoking Status: Never smoker Past Alcohol Use History: Occasional Past Drug Use History: None Reported Medications and Allergies Home Medications Medication Instructions Recorded Confirmed Type Atorvastatin Calcium [Lipitor] 10 mg PO DAILY 09/19/20 11/23/21 History Ipratropium [place] 0.06%Nasal 2 spr EA NOSTRIL BID PRN 09/19/20 11/23/21 History [Atrovent Nasal 0.06%] Levothyroxine Sodium [Synthroid] 25 mcg PO DAILY 09/19/20 11/23/21 History L.acidoph,Paracasei, B.lactis 1 cap PO DAILY 11/23/21 11/23/21 History [Probiotic] Multivitamins, Thera [Multivitamin 1 tab PO DAILY 11/23/21 11/23/21 History (formulary)] Allergies Allergy/AdvReac Type Severity Reaction Status Date / Time almond Allergy Anaphylaxis Verified 11/23/21 13:57 Physical Exam Vitals: Vital Signs Temp Pulse Pulse Resp BP BP Pulse Ox 11/23/21 14:40 98.8 F 47 L 18 115/42 99 11/23/21 11:26 50 L 20 120/74 98 11/23/21 10:49 52 L 16 124/74 98 11/23/21 10:40 67 11/23/21 10:19 97.6 F 58 L 18 133/78 98 Intake and Output 11/23/21 11/23/21 11/23/21 06:59 14:59 22:59 Other: Weight 81.647 kg Results 11/23/21 10:51 11/23/21 10:51 Cardiac Enzymes 11/23/21 11/23/21 11/23/21 Range/Units 10:51 10:51 14:12 AST 26 (17-59) U/L Troponin I <0.012 <0.012 (0.000-0.034) ng/mL Coagulation 11/23/21 Range/Units 10:51 PT 10.5 (9.0-12.0) sec APTT 22.5 (22.0-30.0) sec CBC 11/23/21 Range/Units 10:51 WBC 5.1 (3.8-10.6) k/uL RBC 4.53 (4.30-5.90) m/uL Hgb 14.2 (13.0-17.5) gm/dL Hct 43.8 (39.0-53.0) % Plt Count 161 (150-450) k/uL Comprehensive Metabolic Panel 11/23/21 Range/Units 10:51 Sodium 142 (137-145) mmol/L Potassium 4.8 (3.5-5.1) mmol/L Chloride 104 (98-107) mmol/L Carbon Dioxide 29 (22-30) mmol/L BUN 17 (9-20) mg/dL Creatinine 1.02 (0.66-1.25) mg/dL Glucose 93 (74-99) mg/dL Calcium 9.2 (8.4-10.2) mg/dL AST 26 (17-59) U/L ALT 19 (4-49) U/L Alkaline Phosphatase 80 (38-126) U/L Total Protein 6.8 (6.3-8.2) g/dL Albumin 4.1 (3.5-5.0) g/dL Current Medications Generic Name Dose Route Start Last Admin Trade Name Freq PRN Reason Stop Dose Admin Aspirin 325 mg 11/24/21 09:00 Aspirin 325 Mg Tab PO DAILY [facility] Atorvastatin Calcium 10 mg 11/23/21 15:00 11/23/21 14:58 Atorvastatin 10 Mg Tab PO Not Given DAILY [facility] Enoxaparin Sodium 40 mg 11/23/21 15:00 11/23/21 15:48 Enoxaparin 40 Mg/0.4 Ml Syringe SQ 40 mg DAILY DANILO Administration Ipratropium [place] 2 spray 11/23/21 14:48 Ipratropium [place] 0.06% Nasal [place] (15 Ml) EA NOSTRIL BID PRN Allergy Symptoms Levothyroxine Sodium 25 mcg 11/24/21 06:30 Levothyroxine 25 Mcg Tab PO DAILY@0630 DANILO Naloxone HCl 0.2 mg 11/23/21 14:49 Naloxone 0.4 Mg/Ml 1 Ml Vial IV Q2M PRN Opioid Reversal Nitroglycerin 0.4 mg 11/23/21 13:37 Nitroglycerin Sl Tabs 0.4 Mg Tab SUBLINGUAL Q5M PRN Chest Pain Nitroglycerin 1 inch 11/23/21 18:00 Nitroglycerin Oint 1 Inch/Gm Packet TOPICAL Q6HR DANILO Intake and Output 11/23/21 11/23/21 11/23/21 06:59 14:59 22:59 Other: Weight 81.647 kg Patient Weight 11/24/21 06:59 Weight 81.647 kg 11/23/21 10:51 11/23/21 10:51
[2021-11-23 17:46] LABS: Basophils # (A) 0.1 k/uL (0-0.2); Basophils % (A) 2 %; Eosinophils # (A) 0.2 k/uL (0-0.7); Eosinophils % (A) 4 %; HCT 39.4 % (39.0-53.0); HGB 12.9 gm/dL (13.0-17.5); Lymphocytes # (A) 0.9 k/uL (1.0-4.8); Lymphocytes % (A) 17 %; MCH 31.5 pg (25.0-35.0); MCHC 32.9 g/dL (31.0-37.0); Mean Platelet Volume 8.1; Monocytes # (A) 0.5 k/uL (0-1.0); Monocytes % (A) 9 %; Neutrophils # (A) 3.4 k/uL (1.3-7.7); Neutrophils % (A) 66 %; Platelet Count 150 k/uL (150-450); RBC 4.11 m/uL (4.30-5.90); RDW 13.1 % (11.5-15.5); WBC 5.2 k/uL (3.8-10.6)
[2021-11-23] MEDS ORDERED: NITROGLYCERIN OINT 1 INCH/GM PACKET TOPICAL SCH (18:00)
[2021-11-24] MEDS ORDERED: LEVOTHYROXINE 25 MCG TAB PO SCH (06:30)
[2021-11-24] MEDS: ATORVASTATIN 10 MG TAB PO SCH (07:59)
[2021-11-24] MEDS ORDERED: ASPIRIN 325 MG TAB PO SCH (09:00)
--- NOTE | 2021-11-24 10:07 | P.PN ---
Subjective Progress Note Date: 11/24/21 HISTORY OF PRESENT ILLNESS: he patient is a 76-year-old male with a history of hyperlipidemia who presents with symptoms of chest discomfort on and off for the last 6 weeks. The d iscomfort is not activity related, random time and short duration. He did not have any associated dyspnea, dizziness, palpitations or syncope. This morning he woke up getting ready to go to [employer], had some chest discomfort so he came into the emergency room. He is usually active physically, has no associated symptoms. He has no documented history of myocardial infarction, CAD or CHF. He has no history of diabetes, hypertension or smoking. The discomfort has no radiation and not associated with any other symptoms. In the emergency room his initial troponin was unremarkable and his EKG showed sinus mechanism with right bundle branch block of unknown duration. Medications: Atorvastatin 10 mg daily, levothyroxine, Atrovent 11/24/2021 Patient examined this morning at the bedside. Patient denies any further episodes of chest pain or pressure. He denies shortness of breath. Troponins are negative 3. Vital signs are stable. PHYSICAL EXAM: VITAL SIGNS: Reviewed. GENERAL: Well-developed in no acute distress. NECK: Supple. No JVD or thyromegaly LUNGS: Respirations even and unlabored. Lungs essentially clear to auscultation bilaterally. HEART: Regular rate and rhythm. S1 and S2 heard. EXTREMITIES: Normal range of motion. No clubbing or cyanosis. Peripheral pulses intact. No lower extremity edema ASSESSMENT: Chest pain Hyperlipidemia Hypothyroidism Right bundle branch block of unknown duration PLAN: An acute coronary event has been ruled out 2-D echo ordered. Await results Patient to undergo stress echocardiogram today If negative, the patient may be discharged home from a cardiac standpoint Nurse practitioner note has been reviewed by physician. Signing provider agrees with the documented findings, assessment, and plan of care. Objective - Vital Signs Vital signs: Vital Signs Temp 97.5 F L 11/24/21 07:00 Pulse 49 L 11/24/21 07:00 Resp 18 11/24/21 07:00 BP 113/72 11/24/21 07:00 Pulse Ox 98 11/24/21 07:00 FiO2 Intake & Output 11/23/21 11/24/21 11/24/21 18:59 06:59 18:59 Intake Total 360 Balance 360 Weight 81.647 kg Intake: Oral 360 Other: # Voids 1 - Labs CBC & Chem 7: 11/23/21 16:57 11/23/21 10:51 Labs: Abnormal Lab Results - Last 24 Hours (Table) 11/23/21 11/23/21 Range/Units 10:51 16:57 RBC 4.11 L (4.30-5.90) m/uL Hgb 12.9 L (13.0-17.5) gm/dL Lymphocytes # 0.9 L 0.9 L (1.0-4.8) k/uL
[2021-11-24 11:08] LABS: Basophils # (A) 0.05 X 10*3/uL (0.00-0.10); Eosinophils # (A) 0.21 X 10*3/uL (0.04-0.35); Eosinophils % (A) 4.1 %; HGB 12.8 g/dL (13.0-17.0); Immature Grans, Automated 0.4 %; Lymphocytes % (A) 25.3 %; MCH 30.9 pg (27.0-32.0); MCHC 32.8 g/dL (32.0-37.0); MCV 94.2 fL (80.0-97.0); Monocytes # (A) 0.61 X 10*3/uL (0.20-1.00); Monocytes % (A) 11.9 %; NRBC Per 100 WBC 0 /100 WBCS (0.0-0.0); Neutrophils # (A) 2.94 X 10*3/uL (1.80-7.70); Neutrophils % (A) 57.3 %; Platelet Count 144 X 10*3/uL (140-440); RBC 4.14 X 10*6/uL (4.40-5.60); RDW 13.1 % (11.5-14.5); WBC 5.13 X 10*3/uL (4.50-10.00)
--- NOTE | 2021-11-24 12:06 | CA ---
Transthoracic Echo Report Name: Andre Duran Age: 76 Gender: M : 1945 Exam Date: 11/24/2021 09:40 Exam Location: [facility] Ht (in): 71 Wt (lb): 180 Ordering Physician: Magen Villagomez MD Attending/Referring Phys: Clinical Appeals Reviewer Lexus Lee RDCS Procedure CPT: Indications: Chest Pain Cardiac Hx: Technical Quality: Fair Contrast 1: Total Dose (mL): Contrast 2: Total Dose (mL): MEASUREMENTS (Male / Female) Normal Values 2D ECHO LV Diastolic Diameter PLAX 4.2 cm 4.2 - 5.9 / 3.9 - 5.3 cm LV Systolic Diameter PLAX 2.6 cm IVS Diastolic Thickness 1.4 cm 0.6 - 1.0 / 0.6 - 0.9 cm LVPW Diastolic Thickness 1.3 cm 0.6 - 1.0 / 0.6 - 0.9 cm LV Relative Wall Thickness 0.6 RV Internal Dim ED PLAX 3.8 cm LA Volume 51.6 cm??? 18 - 58 / 22 - 52 cm??? M-MODE Aortic Root Diameter MM 3.0 cm LA Systolic Diameter MM 3.3 cm LA Ao Ratio MM 1.1 AV Cusp Separation MM 2.1 cm DOPPLER AV Peak Velocity 95.8 cm/s AV Peak Gradient 3.7 mmHg LVOT Peak Velocity 78.1 cm/s LVOT Peak Gradient 2.4 mmHg MV Area PHT 3.1 cm??? Mitral E Point Velocity 76.0 cm/s Mitral A Point Velocity 92.3 cm/s Mitral E to A Ratio 0.8 MV Deceleration Time 244.9 ms MV E' Velocity 7.4 cm/s Mitral E to MV E' Ratio 10.3 TR Peak Velocity 236.1 cm/s TR Peak Gradient 22.3 mmHg Right Ventricular Systolic Press 25.7 mmHg FINDINGS Left Ventricle Mildly increased left ventricular wall thickness. Normal left ventricular systolic function with no obvious regional wall motion abnormalities. Normal left ventricular diastolic filling pattern. Left ventricular ejection fraction is estimated at 55- 60 %. Right Ventricle Normal right ventricular size and function. Right ventricular systolic pressure within normal limits. Right Atrium Normal right atrial size. Left Atrium Normal left atrial size. No evidence for an atrial septal defect. Mitral Valve Structurally normal mitral valve. No mitral stenosis, regurgitation or prolapse. Aortic Valve Trileaflet aortic valve. Aortic valve sclerosis. No aortic valve stenosis or regurgitation. Tricuspid Valve Structurally normal tricuspid valve. Mild tricuspid regurgitation. Pulmonic Valve Structurally normal pulmonic valve. Trace pulmonic regurgitation. Pericardium No pericardial effusion. Aorta Normal size aortic root and proximal ascending aorta. CONCLUSIONS Normal left ventricular ejection fraction 55-60% Mild LVH Mild aortic sclerosis Mild tricuspid regurgitation RVSP 25 Previewed by: Dr. Demario Parks DO (Electronically Signed) Final Date: 24 November 2021 12:05
[2021-11-24 12:08] LABS: Chol/HDL Ratio 2.41 Ratio; LDL Cholesterol,Calculated 76.8 mg/dL (0.0-131.0); VLDL Calculation 17.34 mg/dL (5.00-40.00)
--- NOTE | 2021-11-24 12:09 | CA ---
Stress Echo Report Andre Duran Age: 76 Gender: M : 1945 Exam Date: 11/24/2021 11:05 Exam Location: [facility] Ht (in): 72 Wt (lb): 180 Ordering Physician: Magen Villagomez MD Referring Physician: KURT,, Lead Scientist: Belle Villanueva RDCS Technologist Procedure CPT: Indication: Chest Pain ICD-9 Codes: Rhythm: Patient History: CHEST PAIN, FAMILY HX OF HEART DISEASE Cardiac Medications: Medications in past 24 hours: Contrast: Stress Results Protocol: Armand Total dose(mL): Exercise Duration (min:sec): Max ST Depression (mm): Angina Score: Cook Score: METS: 11.7 Resting HR: 60 Resting BP: 127 / 77 Peak HR: 140 Peak BP: 176 / 59 Max Predicted HR: 143 98 % Max Predicted HR Target HR: 122 Double Product: [id number] Stress Summary: BP Response: Reason for Termination: MAX EXERTION/TARGET HR Cardiac Symptoms: NO SYMPTOMS ECG Analysis Resting ECG: Stress ECG: Arrhythmia: Echo Analysis Resting Echo: Peak Echo Analysis: MEASUREMENTS (Male/Female) Normal Values CONCLUSIONS Patient underwent exercise stress echo with a Armand protocol treadmill stress test. Patient exercised into Stage 3 for a total of 10 minutes reaching a total of 11.7 METS. Patient's maximum heart rate was 140 which represented 97 % age-predicted maximum heart rate. Stress EKG portion: At baseline patient's EKG showed normal sinus rhythm, normal axis, right bundle branch block with nonspecific ST depressions in the inferior leads.. At peak exercise, EKG showed mild accentuation of baseline EKG abnormalities. Stress echo portion: 2-D echocardiogram was performed in the parasternal long, personal short, apical 2 and apical four-chamber views at rest, peak exercise and in recovery. At baseline, echocardiogram showed left ventricular ejection fraction 55% without wall motion abnormalities. With peak exercise, echocardiogram shows improvement in left ventricular ejection fraction, increase contractility, decrease in left ventricular end systolic dimension without wall motion abnormalities consistent with a normal response to exercise. Conclusions: 1. Normal echo response to exercise without evidence of inducible ischemia. 2. Nonspecific EKG portion secondary baseline EKG abnormalities. 3. Normal left ventricular ejection fraction 55% 4. Good exercise capacity. Dr. Demario Parks DO (Electronically Signed) Final Date: 24 November 2021 12:08
[2021-11-24 12:11] LABS: African American GFR (CKD) 76.3 (60.0-200.0); BUN/Creat Ratio 13.61 Ratio (12.00-20.00); Blood Urea Nitrogen 14.7 mg/dL (9.0-27.0); Calcium 9.1 mg/dL (8.7-10.3); Carbon Dioxide 25.6 mmol/L (20.0-27.5); Chloride 104 mmol/L (96-109); Glucose 95 mg/dL (70-110); Non-African American GFR(CKD) 65.9 (60.0-200.0); Potassium 4.2 mmol/L (3.5-5.5); Sodium 140 mmol/L (135-145)
[2021-11-24] MEDS: ENOXAPARIN 40 MG/0.4 ML SYRINGE SQ SCH (13:10)
--- NOTE | 2021-11-24 13:44 | P.DS ---
Providers Date of admission: 11/23/21 13:37 Expected date of discharge: 11/24/21 Attending physician: Magen Villagomez MD Consults: 11/23/21 13:37 Consult Physician Urgent Consulting Provider: Yane Clarke Consult Reason/Comments: cp Do you want consulting provider notified?: Yes Primary care physician: Milena Pollo [facility] Course: Discharge Diagnosis: Atypical chest pain, acute coronary event ruled out Sinus bradycardia with first-degree AV block Right bundle-branch block Hyperlipidemia Hypothyroidism Hospital Course: Patient is a very pleasant 76-year-old male with a past medical history of hyperlipidemia and hypothyroidism. He presented to the emergency department on 11/23/21 with a chief complaint of chest pain. Patient reported this chest pain developed after a day of doing yard work. He was seen and fully evaluated in the emergency department. EKG revealing sinus bradycardia with a first-degree AV block with SC interval of 256 ms and a right bundle branch block. Chest x- ray negative for acute cardiopulmonary process. CBC, coags, and CMP showing no significant abnormalities. Troponin negative at less than 0.012. Patient admitted under services of consultation cardiology. Troponins trended all negative at less than 0.0123 draws. Patient reports no further episodes of chest pain since arrival to our facility. Lipid profile unremarkable. Echocardiogram revealing an EF of 55-60%, mild LVH, mild aortic stenosis, and mild tricuspid regurgitation. Patient was evaluated by cardiology and underwent a stress echo revealing normal echo response to exercise without evidence of inducible ischemia and good exercise capacity with an EF of 55%. Cardiology recommending outpatient follow-up in the office in one week. Patient is medically stable for discharge at this time and follow up as discussed with PCP in 1-2 days and cardiology in 1 week. Physical examination: Patient seen and examined at bedside. Vital signs reviewed and stable. General: Nontoxic, no distress and appears stated age. Derm: Skin warm and dry, normal coloration for ethnicity. Head: Atraumatic, normocephalic and symmetric. Eyes: EOMs intact, no lid lag, and anicteric sclera Mouth: no lip lesions, mucus membranes moist Cardiovascular: Bradycardic rate and rhythm with normal S1S2, no murmur, positive posterior tibial pulses bilaterally, and cap refill < 2 seconds. Lungs: Respirations even, regular, and unlabored on room air. Lungs CTA bilaterally, no rhonchi, no rales, no wheezing, and no accessory muscle usage. Abdominal: soft, nontender to palpation, no guarding, no appreciable organomegaly Ext: ROM intact. No gross muscle atrophy, no edema, no contractures Neuro: Speech clear, face symmetrical and CN II-XII grossly intact with no noted focal neuro deficits Psych: Alert and oriented to person, place, time, and situation. Appropriate and pleasant affect. A total of 35 minutes of time were spent preparing this complex discharge summary. Pt was discharged on 11/24/21 at 1:45 PM Patient Condition at Discharge: Stable Plan - Discharge Summary Discharge Rx Participant: No New Discharge Prescriptions: Continue Multivitamins, Thera [Multivitamin (formulary)] 1 tab PO DAILY L.acidoph,Paracasei, B.lactis [Probiotic] 1 cap PO DAILY Levothyroxine Sodium [Synthroid] 25 mcg PO DAILY Ipratropium [place] 0.06%Nasal [Atrovent Nasal 0.06%] 2 spr EA NOSTRIL BID PRN PRN Reason: Allergy Symptoms Atorvastatin Calcium [Lipitor] 10 mg PO DAILY Discharge Medication List Atorvastatin Calcium [Lipitor] 10 mg PO DAILY 09/19/20 [History] Ipratropium [place] 0.06%Nasal [Atrovent Nasal 0.06%] 2 spr EA NOSTRIL BID PRN 09/19/20 [History] Levothyroxine Sodium [Synthroid] 25 mcg PO DAILY 09/19/20 [History] L.acidoph,Paracasei, B.lactis [Probiotic] 1 cap PO DAILY 11/23/21 [History] Multivitamins, Thera [Multivitamin (formulary)] 1 tab PO DAILY 11/23/21 [History] Follow up Appointment(s)/Referral(s): Milena Abad MD [Primary Care Provider] - 1-2 days Demario Parks DO [STAFF PHYSICIAN] - 1 Week Patient Instructions/Handouts: Chest Pain (DC) Activity/Diet/Wound Care/Special Instructions: Activity: As tolerated. Take breaks as needed. Diet: Heart healthy and carb consistent diet. Avoid salts, or foods with hidden salts such as canned or boxed foods and frozen dinners. Extra salt makes your heart work harder and traps the fluid in your body for longer. Special Instructions: Take all of your medications as directed and remember to keep all of your docto r's appointments and follow-up as needed. Thank you for allowing us to participate in your care, it was truly a pleasure having you for our patient!!! Discharge Disposition: HOME SELF-CARE
[2021-11-24 13:58] VITALS: BP 112/64; PULSE 58; RESP 16; TEMP 97.6
[2021-11-25] MEDS ORDERED: ASPIRIN 81 MG PO SCH (09:00)
== END 2021-11-24 14:29 | disposition home or self-care (01) ==
LOC: EC 10:17 → 6NMEDSUR 13:37
PROVIDERS: ADMIT Internal Medicine; ATTEND Internal Medicine
DX: R07.89 Other chest pain (principal); I44.0 Atrioventricular block, first degree; R00.1 Bradycardia, unspecified; I45.10 Unspecified right bundle-branch block; E78.5 Hyperlipidemia, unspecified; E03.9 Hypothyroidism, unspecified; Z79.82 Long term (current) use of aspirin; Z79.890 Hormone replacement therapy; Z79.899 Other long term (current) drug therapy
CPT/HCPCS: 96372; 99285; 36415; 93005; 93306; 93351; 80061; 80053; 80048; 83735; 84484; 85025 ×2; 85610; 85730; 71046; G0378 ×2; J1650

== ENCOUNTER → 2022-09-19 | Outpatient (CLI) | payer MEDICARE ==
--- NOTE | 2022-09-19 10:24 | MR ---
EXAMINATION TYPE: MR lumbar spine wo con DATE OF EXAM: 09/19/2022 9:48 AM COMPARISON: NONE HISTORY: Low back pain Multiplanar, MultiSpin echo imaging of the lumbar spine was performed. L1-L2: Moderate disc desiccation posterior disc bulge. Effacement of the ventral thecal sac. No evide nce for disc herniation or central stenosis. Visualized foramina appear to be patent bilaterally. L2-L3: Moderate disc desiccation posterior disc bulge. Effacement of the ventral thecal sac. No evide nce for disc herniation or central stenosis. Visualized foramina appear to be patent bilaterally. L3-L4: Moderate disc desiccation posterior disc bulge. Effacement of the ventral thecal sac. No evide nce for disc herniation or central stenosis. There is evidence of right lateral recess stenosis. Visu alized foramina appear to be patent bilaterally. L4-L5: Moderate disc desiccation posterior disc bulge. Effacement of the ventral thecal sac. No evide nce for disc herniation or central stenosis. Mild left lateral recess stenosis. Mild bilateral neural foraminal encroachment. L5-S1: Moderate disc desiccation. No significant disc bulge. No herniation or central stenosis. Facet joint arthropathy resulting in moderate bilateral foraminal encroachment. Lumbar segments are intact. No paraspinal masses are identified. Conus medullaris has a normal appe arance. Scattered ventral spondylosis. IMPRESSION: 1. Multilevel degenerative disc disease with varying degrees of lateral recess stenosis as discussed above as well as neural foraminal encroachment.
== END | disposition home or self-care (01) ==
LOC: RADMRIMAIN 08:26
PROVIDERS: ATTEND Family Medicine
DX: M51.16 Intervertebral disc disorders with radiculopathy, lumbar region (principal); M48.061 Spinal stenosis, lumbar region without neurogenic claudication; M47.26 Other spondylosis with radiculopathy, lumbar region; K86.89 Other specified diseases of pancreas
CPT/HCPCS: 72148; 74183; A9585

== ENCOUNTER → 2023-05-18 | Outpatient (CLI) | payer MEDICARE ==
--- NOTE | 2023-05-20 12:58 | CT ---
EXAMINATION TYPE: CT brain wo con CT DLP: 1150.5 mGycm, Automated exposure control for dose reduction was used. DATE OF EXAM: 05/18/2023 4:21 PM COMPARISON: CT head 10/28/2019 CLINICAL INDICATION:Male, 77 years old with history of R51.9 Headache, headache x 2 weeks TECHNIQUE: Brain: Axial CT images of the brain were obtained with coronal and sagittal reformats created and rev iewed. Contrast used: None. Oral contrast used: None. FINDINGS: Extra-axial spaces: No abnormal extra-axial fluid collections. Ventricular system: Within normal limits. Cerebral parenchyma: No increased attenuation to suggest acute intraparenchymal hemorrhage. The gra y-white matter interface appears maintained. Moderate generalized brain atrophy. Scattered hypoatte nuating areas are seen within the cerebral white matter, nonspecific but most often seen with chronic microvascular ischemic changes; moderate in degree. Cerebellum: No acute abnormality. Mass effect: No evidence of mass effect or midline shift. Intracranial vasculature: Similar appearance of tortuous vertebrobasilar system with mild ectasia of the left vertebral. Soft tissues: No acute or concerning abnormality. Visualized orbits: Orbital contents appear grossly intact. Calvarium/osseous structures: No evidence of calvarial fracture. Paranasal sinuses and mastoid air cells: Clear. MRI is more sensitive for detecting acute processes such as infarct, and may be considered if clinica lly warranted. IMPRESSION: 1. No CT evidence of an acute intracranial abnormality. 2. Atrophy and chronic microvascular ischemic white matter changes.
== END | disposition home or self-care (01) ==
LOC: RADCTMAIN 16:01
PROVIDERS: ATTEND Family Medicine
DX: I67.82 Cerebral ischemia (principal); G31.89 Other specified degenerative diseases of nervous system
CPT/HCPCS: 70450

== ENCOUNTER → 2024-08-17 | Outpatient (CLI) | payer MEDICARE | END | disposition home or self-care (01) | LOC: LABPAT 15:29 | PROVIDERS: ATTEND Orthopaedic Surgery | DX: Z01.812 Encounter for preprocedural laboratory examination (principal); M16.11 Unilateral primary osteoarthritis, right hip | CPT/HCPCS: 86850; 86900; 86901 ==

== ENCOUNTER 2024-08-30 08:30 | Emergency (ER) | payer MEDICARE ==
--- NOTE | 2024-08-30 08:44 | ED ---
Syncope HPI - General Stated Complaint: near syncope Time Seen by Provider: 08/30/24 08:32 Source: RN notes reviewed, old records reviewed Mode of arrival: ambulatory Limitations: no limitations - History of Present Illness Initial Comments: This is an 79-year-old male to the ER for evaluation of a near syncopal event today. Patient has no headache chest pain shortness of breath or abdominal pain. Patient felt dizzy while he was shaving today. He did fall and hit the ground but no traumatic injury or pain. Patient was just significantly dizzy and lightheaded and he does have history of recent surgery recent hip replacement. MD Complaint: loss of consciousness, collapsed -: hour(s) Prodromal Symptoms: lightheaded -: second(s) Witnessed: yes - by bystander Injuries Sustained Associated with Event: None Current Symptoms: back to baseline Context: standing up Treatments Prior to Arrival: none - Related Data Home Medications Medication Instructions Recorded Confirmed Atorvastatin Calcium [Lipitor] 10 mg PO DAILY 09/19/20 08/28/24 Ipratropium [place] 0.06%Nasal 2 spr EA NOSTRIL BID PRN 09/19/20 08/28/24 [Atrovent Nasal 0.06%] Levothyroxine Sodium [Synthroid] 25 mcg PO DAILY 09/19/20 08/28/24 L.acidoph,Paracasei, B.lactis 1 cap PO DAILY 11/23/21 08/28/24 [Probiotic] Multivitamins, Thera [Multivitamin 1 tab PO DAILY 11/23/21 08/28/24 (formulary)] Previous Rx's Medication Instructions Recorded Aspirin [Adult Low Dose Aspirin EC] 81 mg PO BID #60 tab 08/28/24 HYDROcodone/APAP 7.5-325MG [[place] 1 tab PO Q6HR PRN #28 tab 08/28/24 7.5-325] Sennosides/Docusate Sodium [Senna 1 each PO DAILY #20 capsule 08/28/24 Plus 8.6-50 mg Softgel] traMADol HCl [Ultram] 100 mg PO Q6H PRN #20 tab 08/30/24 Allergies Allergy/AdvReac Type Severity Reaction Status Date / Time almond Allergy Anaphylaxis Verified 08/28/24 08:57 [email or web address] Allergy Anaphylaxis Uncoded 08/28/24 08:57 Review of Systems ROS Statement: Those systems with pertinent positive or pertinent negative responses have been documented in the HPI. ROS Other: All systems not noted in ROS Statement are negative. Past Medical History Past Medical History: Prostate Disorder Additional Past Medical History / Comment(s): diverticulitis History of Any Multi-Drug Resistant Organisms: MRSA Date of last positivie culture/infection: 02/17/21 MDRO Source:: MRSA SCALP Past Surgical History: Joint Replacement, Orthopedic Surgery, Prostate Surgery Additional Past Surgical History / Comment(s): prostate removed, skin ca removed, colonoscopy, total right hip replacement. Past Anesthesia/Blood Transfusion Reactions: No Reported Reaction Past Psychological History: No Psychological Hx Reported Smoking Status: Never smoker Past Alcohol Use History: Occasional Past Drug Use History: None Reported General Exam General appearance: alert, in no apparent distress Head exam: Present: atraumatic, normocephalic, normal inspection Eye exam: Present: normal appearance, PERRL, EOMI. Absent: scleral icterus, conjunctival injection, periorbital swelling ENT exam: Present: normal exam, mucous membranes moist Neck exam: Present: normal inspection. Absent: tenderness, meningismus, lymphadenopathy Respiratory exam: Present: normal lung sounds bilaterally. Absent: respiratory distress, wheezes, rales, rhonchi, stridor Cardiovascular Exam: Present: regular rate, normal rhythm, normal heart sounds. Absent: systolic murmur, diastolic murmur, rubs, gallop, clicks GI/Abdominal exam: Present: soft, normal bowel sounds. Absent: distended, tenderness, guarding, rebound, rigid Extremities exam: Present: normal inspection, full ROM, normal capillary refill. Absent: tenderness, pedal edema, joint swelling, calf tenderness Back exam: Present: normal inspection Neurological exam: Present: alert, oriented X3, CN II-XII intact Psychiatric exam: Present: normal affect, normal mood Skin exam: Present: warm, dry, intact, normal color. Absent: rash Course Vital Signs 08/30/24 08/30/24 08/30/24 08:31 09:00 09:02 Temperature Pulse Rate 65 60 Respiratory 14 18 16 Rate Blood Pressure 109/70 121/64 O2 Sat by Pulse 97 100 Oximetry 08/30/24 08/30/24 08/30/24 10:00 10:37 11:43 Temperature 98.4 F Pulse Rate 77 66 68 Respiratory 16 16 16 Rate Blood Pressure 139/87 131/77 107/66 O2 Sat by Pulse 98 98 99 Oximetry - Reevaluation(s) Reevaluation #1: Medical records reviewed Reevaluation #2: Patient's symptoms improved no recurrent syncope Reevaluation #3: Patient informed of results questions answered Reevaluation #4: Was pt. sent in by a medical professional or institution (, [facility], [employer], urgent care, hospital, or fci...) When possible be specific @ -no Did you speak to anyone other than the patient for history (EMS, parent, family, police, friend...)? What history was obtained from this source @ -no Did you review nursing and triage notes (agree or disagree)? Why? @ -agree Are old charts reviewed (outside hosp., previous admission, EMS record, old EKG, old radiological studies, urgent care reports/EKG's, fci records)? Report findings @ -yes Differential Diagnosis (chest pain, altered mental status, abdominal pain women, abdominal pain men, vaginal bleeding, weakness, fever, dyspnea, syncope, headache, dizziness, GI bleed, back pain, seizure, CVA, palpatations, mental health, musculoskeletal)? @ -prior EKG interpreted by me (3pts min.). @ -yes X-rays interpreted by me (1pt min.). @ -no CT interpreted by me (1pt min.). @ -yes negative for acute disease U/S interpreted by me (1pt. min.). @ -no What testing was considered but not performed or refused? (CT, X-rays, U/S, labs)? Why? @ -none What meds were considered but not given or refused? Why? @ -none Did you discuss the management of the patient with other professionals (professionals i.e. [facility], [employer], lab, RT, psych nurse, high school social science teacher, police clerk, teacher, bomb squad officer, community case manager)? Give summary @ -no Was smoking cessation discussed for >3mins.? @ -no Was critical care preformed (if so, how long)? @ -no Were there social determinants of health that impacted care today? How? (Homelessness, low income, unemployed, alcoholism, drug addiction, transportation, low edu. Level, literacy, decrease access to med. care, residential, rehab)? @ -none Was there de-escalation of care discussed even if they declined (Discuss DNR or withdrawal of care, Hospice)? DNR status @ -no What co-morbidities impacted this encounter? (DM, HTN, Smoking, COPD, CAD, Cancer, CVA, ARF, Chemo, Hep., AIDS, mental health diagnosis, sleep apnea, morbid obesity)? @ -none Was patient admitted / discharged? Hospital course, mention meds given and route, prescriptions, significant lab abnormalities, going to OR and other pertinent info. @ - 79 male to the ER for evaluation of a near syncopal event no recurrent syncope here in the ER. Patient feels well earlier today no headache chest pain shortness with abdominal pain he can be discharged home Discharge Undiagnosed new problem with uncertain prognosis? @ -no Drug Therapy requiring intensive monitoring for toxicity (Heparin, Nitro, Insulin, Cardizem)? @ -no Were any procedures done? @ -no Diagnosis/symptom? @ -Near syncope Acute, or Chronic, or Acute on Chronic? @ -Acute Uncomplicated (without systemic symptoms) or Complicated (systemic symptoms)? @ -Complicated Side effects of treatment? @ -no Exacerbation, Progression, or Severe Exacerbation? @ -exacerbation Poses a threat to life or bodily function? How? (Chest pain, [place], [place], pneumonia, PE, COPD, DKA, ARF, appy, cholecystitis, CVA, Diverticulitis, Homicidal, Suicidal, threat to staff... and all critical care pts) @ -yes extremes of age Reevaluation #5: Differential Syncope: Valvular disease, hypertrophic cardiomyopathy, pulmonary embolism, tamponade, tachycardia, bradycardia, [place], hypovolemia, hemorrhage, dissection, anemia, intracranial hemorrhage, seizure, hypoglycemia, carbon monoxide poisoning, this is not meant to be an all-inclusive list. EKG Findings - EKG Comments: EKG Findings:: EKG is sinus 65 [place] 255 QRS 165 QTc 410 - EKG Results: EKG: interpreted by TRAN Medical Decision Making - Medical Decision Making 79 male to the ER for evaluation of a near syncopal event no recurrent syncope h ere in the ER. Patient feels well earlier today no headache chest pain shortness with abdominal pain he can be discharged home - Lab Data Result diagrams: 08/30/24 08:43 08/30/24 08:43 Lab Results 08/30/24 08/30/24 08/30/24 Range/Units 08:43 08:43 08:43 WBC 9.07 (4.50-10.00) 10*3/uL RBC 3.65 L (4.40-5.60) 10*6/uL Hgb 11.7 L (13.0-17.0) g/dL Hct 34.5 L (39.6-50.0) % MCV 94.5 (80.0-97.0) fL MCH 32.1 H (27.0-32.0) pg MCHC 33.9 (32.0-37.0) g/dL Plt Count 139 L (140-440) 10*3/uL MPV 10.9 (9.5-12.2) fL Immature Gran % (Auto) 0.3 % Neutrophils % 74.7 % Lymphocytes % 10.4 % Monocytes % 13.0 % Eosinophils % 1.2 % Basophils % 0.4 % Immature Gran # 0.03 (0.00-0.04) 10*3/uL Neutrophils # 6.77 (1.80-7.70) 10*3/uL Lymphocytes # 0.94 (0.90-5.00) 10*3/uL Monocytes # 1.18 H (0.20-1.00) 10*3/uL Eosinophils # 0.11 (0.04-0.35) 10*3/uL Basophils # 0.04 (0.00-0.10) 10*3/uL Manual Slide Review Performed PT (10.0-12.5) sec INR (<1.2) APTT (22.0-30.0) sec D-Dimer (<0.60) mg/L FEU Sodium 135 L (137-145) mmol/L Potassium 4.1 (3.5-5.1) mmol/L Chloride 105 (98-107) mmol/L Carbon Dioxide 24 (22-30) mmol/L Anion Gap 6 mmol/L BUN 17 (9-20) mg/dL Creatinine 0.93 (0.66-1.25) mg/dL Est GFR (CKD-EPI)AfAm 90 (>60 ml/min/1.73 sqM) Est GFR (CKD-EPI)NonAf 78 (>60 ml/min/1.73 sqM) Glucose 122 H (74-99) mg/dL Plasma Lactic Acid Joaqu[place] 1.2 (0.7-2.0) mmol/L Calcium 8.4 (8.4-10.2) mg/dL Phosphorus 2.6 (2.5-4.5) mg/dL Magnesium 1.8 (1.6-2.3) mg/dL Total Bilirubin 0.7 (0.2-1.3) mg/dL AST 48 (17-59) U/L ALT 20 (4-49) U/L Alkaline Phosphatase 62 (38-126) U/L Troponin I (0.000-0.034) ng/mL NT-Pro-B Natriuret Pep 148 pg/mL Total Protein 5.7 L (6.3-8.2) g/dL Albumin 3.3 L (3.5-5.0) g/dL Urine Color Urine Appearance (Clear) Urine pH (5.0-8.0) Ur Specific [place] (1.001-1.035) Urine Protein (Negative) Urine Glucose (UA) (Negative) Urine Ketones (Negative) Urine Blood (Negative) Urine Nitrite (Negative) Urine Bilirubin (Negative) Urine Urobilinogen (<2.0) mg/dL Ur Leukocyte Esterase (Negative) 08/30/24 08/30/24 08/30/24 Range/Units 08:43 10:00 10:04 WBC (4.50-10.00) 10*3/uL RBC (4.40-5.60) 10*6/uL Hgb (13.0-17.0) g/dL Hct (39.6-50.0) % MCV (80.0-97.0) fL MCH (27.0-32.0) pg MCHC (32.0-37.0) g/dL Plt Count (140-440) 10*3/uL MPV (9.5-12.2) fL Immature Gran % (Auto) % Neutrophils % % Lymphocytes % % Monocytes % % Eosinophils % % Basophils % % Immature Gran # (0.00-0.04) 10*3/uL Neutrophils # (1.80-7.70) 10*3/uL Lymphocytes # (0.90-5.00) 10*3/uL Monocytes # (0.20-1.00) 10*3/uL Eosinophils # (0.04-0.35) 10*3/uL Basophils # (0.00-0.10) 10*3/uL Manual Slide Review PT 11.6 (10.0-12.5) sec INR 1.1 (<1.2) APTT 20.5 L (22.0-30.0) sec D-Dimer 1.80 H (<0.60) mg/L FEU Sodium (137-145) mmol/L Potassium (3.5-5.1) mmol/L Chloride (98-107) mmol/L Carbon Dioxide (22-30) mmol/L Anion Gap mmol/L BUN (9-20) mg/dL Creatinine (0.66-1.25) mg/dL Est GFR (CKD-EPI)AfAm (>60 ml/min/1.73 sqM) Est GFR (CKD-EPI)NonAf (>60 ml/min/1.73 sqM) Glucose (74-99) mg/dL Plasma Lactic Acid Joaqu[place] (0.7-2.0) mmol/L Calcium (8.4-10.2) mg/dL Phosphorus (2.5-4.5) mg/dL Magnesium (1.6-2.3) mg/dL Total Bilirubin (0.2-1.3) mg/dL AST (17-59) U/L ALT (4-49) U/L Alkaline Phosphatase (38-126) U/L Troponin I <0.012 (0.000-0.034) ng/mL NT-Pro-B Natriuret Pep pg/mL Total Protein (6.3-8.2) g/dL Albumin (3.5-5.0) g/dL Urine Color Colorless Urine Appearance Clear (Clear) Urine pH 6.5 (5.0-8.0) Ur Specific [place] 1.019 (1.001-1.035) Urine Protein Negative (Negative) Urine Glucose (UA) Negative (Negative) Urine Ketones Negative (Negative) Urine Blood Negative (Negative) Urine Nitrite Negative (Negative) Urine Bilirubin Negative (Negative) Urine Urobilinogen <2.0 (<2.0) mg/dL Ur Leukocyte Esterase Negative (Negative) - EKG Data -: EKG Interpreted by Me - Radiology Data Radiology results: report reviewed (CTA chest negative for acute disease), image reviewed Disposition Clinical Impression: Near syncope Disposition: HOME SELF-CARE Condition: Good Instructions (If sedation given, give patient instructions): Near Syncope (ED) Prescriptions: traMADol HCl [Ultram] 100 mg PO Q6H PRN #20 tab PRN Reason: Pain Is patient prescribed a controlled substance at d/c from ED?: No Referrals: None,Stated [REFERRING] - 1-2 days Time of Disposition: 10:40
[2024-08-30] MEDS: SODIUM CHLORIDE 0.9% 1,000 ML IV ONE (08:57)
[2024-08-30 08:58] LABS: Basophils # (A) 0.04 10*3/uL (0.00-0.10); Basophils % (A) 0.4 %; Eosinophils # (A) 0.11 10*3/uL (0.04-0.35); Eosinophils % (A) 1.2 %; HCT 34.5 % (39.6-50.0); HGB 11.7 g/dL (13.0-17.0); Lymphocytes # (A) 0.94 10*3/uL (0.90-5.00); Lymphocytes % (A) 10.4 %; MCH 32.1 pg (27.0-32.0); MCHC 33.9 g/dL (32.0-37.0); MCV 94.5 fL (80.0-97.0); Mean Platelet Volume 10.9 fL (9.5-12.2); Monocytes # (A) 1.18 10*3/uL (0.20-1.00); Neutrophils # (A) 6.77 10*3/uL (1.80-7.70); Neutrophils % (A) 74.7 %; Platelet Count 139 10*3/uL (140-440); RBC 3.65 10*6/uL (4.40-5.60); WBC 9.07 10*3/uL (4.50-10.00)
[2024-08-30] MEDS: MORPHINE SULFATE 4 MG/ML SYRINGE IV STA (08:58)
[2024-08-30 09:06] VITALS: RESP 16
[2024-08-30 09:13] LABS: ALT 20 U/L (4-49); AST 48 U/L (17-59); African American GFR (CKD) 90 (>60 ml/min/1.73 sqM); Albumin 3.3 g/dL (3.5-5.0); Alkaline Phosphatase 62 U/L (38-126); Anion Gap 6 mmol/L; Blood Urea Nitrogen 17 mg/dL (9-20); Calcium 8.4 mg/dL (8.4-10.2); Carbon Dioxide 24 mmol/L (22-30); Chloride 105 mmol/L (98-107); Glucose 122 mg/dL (74-99); Magnesium 1.8 mg/dL (1.6-2.3); Non-African American GFR(CKD) 78 (>60 ml/min/1.73 sqM); Phosphorus 2.6 mg/dL (2.5-4.5); Potassium 4.1 mmol/L (3.5-5.1); Sodium 135 mmol/L (137-145); Total Bilirubin 0.7 mg/dL (0.2-1.3); Total Protein 5.7 g/dL (6.3-8.2)
[2024-08-30 09:21] LABS: NT-Pro-B-Type Natriuretic Pept 148 pg/mL
[2024-08-30 10:13] LABS: Appearance,Urine Clear (Clear); Bilirubin,Urine Negative (Negative); Blood,Urine Negative (Negative); Color,Urine Colorless; Glucose,Urine (UA) Negative (Negative); Ketones,Urine Negative (Negative); Leukocyte Esterase,Urine Negative (Negative); Nitrite,Urine Negative (Negative); PH, Urine 6.5 (5.0-8.0); Protein,Urine Negative (Negative); Specific Gravity,Urine 1.019 (1.001-1.035); Urobilinogen,Urine <2.0 mg/dL (<2.0)
--- NOTE | 2024-08-30 10:25 | CT ---
EXAMINATION TYPE: CT angio chest DATE OF EXAM: 08/30/2024 10:03 AM COMPARISON: None. CLINICAL INDICATION: Male, 79 years old with history of PE, dizzy. recent hip replacement. r/o PE, TECHNIQUE: CT of the chest is performed on a spiral scan at 2 mm thick sections. Study is performed with intravenous contrast timed for evaluation for pulmonary embolism. This will limit additional po rtions of the evaluation. 10mm MIP images reconstructed by the technologist are reviewed on the comp uter in the coronal and sagittal planes. Contrast used:83ml mL of Isovue 370 with IV Contrast, (none if empty) Oral contrast used: (none if empty) CT DLP: 404.2 mGycm, Automated exposure control for dose reduction was used. FINDINGS: No persistent filling defects are evident to suggest an acute pulmonary embolism. No mediastinal or hilar adenopathy enlarged by CT criteria is evident. The ascending aorta diameter at the level of the main pulmonary artery is 4.3 cm. The main pulmonary artery diameter at the bifurcation is 2.7 cm. Streak opacities are in the bilateral lung bases. Correlate for atelectasis. Moderate coronary artery calcifications present. Limited CT sections were through the upper abdomen. Upper abdomen appears unremarkable. IMPRESSION: 1. No acute pulmonary embolism. 2. Bilateral dependent lung streak atelectasis [facility], , 08/30/2024 10:22 AM
[2024-08-30 10:28] LABS: INR 1.1 (<1.2); Prothrombin Time 11.6 sec (10.0-12.5)
[2024-08-30 10:37] LABS: Partial Thromboplastin Time 20.5 sec (22.0-30.0)
[2024-08-30 11:45] VITALS: BP 107/66; PULSE 68; TEMP 98.4
== END 2024-08-30 11:46 | disposition home or self-care (01) ==
LOC: EC 08:30
DX: R55 Syncope and collapse (principal); Z91.018 Allergy to other foods
CPT/HCPCS: 36415; 93005; 85379; 83880; 80053; 83605; 83735; 84100; 84484; 85025; 85610; 85730; 81003; 71275; 99285; 96374; 96361; J2270; Q9967